=== PATIENT | female | born 1960 | race Caucasian/White ===

== ENCOUNTER 2018-11-10 17:58 | Emergency (ER) | payer OTHER ==
[~2018-11-10] VITALS: Ht 172.7 cm; Wt 60.0 kg
[2018-11-10 18:05] VITALS: Ht 172.7 cm; Wt 60.0 kg
[2018-11-10] MEDS ORDERED: predniSONE 20 MG TAB PO STA (20:23)
[2018-11-10] MEDS ORDERED: ALBUTEROL 0.5% (NEB) 2.5 MG/0.5 ML AMP INH STA (20:23)
[2018-11-10] MEDS ORDERED: IPRATROPIUM (NEB) 0.5 MG/2.5 ML AMP INH STA (20:23)
[2018-11-10] MEDS ORDERED: ALBU18HF INHALATION (21:38)
[2018-11-10] MEDS ORDERED: BENZ200C68 PO (21:38)
[2018-11-10] MEDS ORDERED: PRED20TA PO (21:38)
--- NOTE | 2018-11-10 21:41 | ERD ---
ER Documentation Chief Complaint Chief Complaint PT REPORTS ASTHMA EXACERBATION HPI 58-year-old female with past medical history of asthma presenting to the emergency department complaining of asthma exacerbation for the past 3 days. She reports shortness of breath and wheezing. Symptoms are worse with exertion. She has used her albuterol inhaler 8 times today without significant relief. She also reports cough for the past several weeks. She denies any fevers or chills or other symptoms at this time. ROS All systems reviewed and are negative except as per history of present illness. Medications Home Meds Active Scripts Benzonatate* (Benzonatate*) 200 Mg Capsule, 200 MG PO TID PRN for COUGH, #15 CAP Prov:CHITRA FOX PA-C 11/10/18 Albuterol Sulfate* (Ventolin HFA*) 18 Gm Hfa.aer.ad, 2 PUFF INHALATION Q4H, #1 INHALER Prov:CHITRA FOX PA-C 11/10/18 Prednisone* (Prednisone*) 20 Mg Tab, 40 MG PO DAILY for 4 Days, TAB Prov:CHITRA FOX PA-C 11/10/18 Allergies Allergies: Coded Allergies: propoxyphene (Verified Allergy, Unknown, 11/10/18) PMhx/Soc History of Surgery: No Anesthesia Reaction: No Hx Neurological Disorder: No Hx Respiratory Disorders: Yes (asthma) Hx Cardiac Disorders: Yes (HTN) Hx Miscellaneous Medical Probl: Yes (HEPATITIS C ) Hx Alcohol Use: No Hx Substance Use: No Hx Tobacco Use: No Smoking Status: Never smoker FmHx Family History: No diabetes Physical Exam Vitals Vital Signs Date Temp Pulse Resp B/P (MAP) Pulse Ox O2 O2 Flow FiO2 Time Delivery Rate 11/10/18 59 18 98 21 20:59 11/10/18 98.7 82 20 169/98 100 18:05 (121) Physical Exam Const: No acute distress Head: Atraumatic Eyes: Normal Conjunctiva ENT: Normal External Ears, Nose and Mouth. Neck: Full range of motion. No meningismus. Resp: No respiratory distress. Shallow inspiratory effort. Mild inspiratory wheezing noted to bilateral upper lung morin. Cardio: Regular rate and rhythm, no murmurs Skin: No petechiae or rashes Ext: No cyanosis, or edema Neur: Awake and alert Psych: Normal Mood and Affect Results 24 hrs Current Medications Medications Dose Sig/Richard Start Time Status Last (Trade) Ordered Route PRN Stop Time Admin Dose Reason Admin Albuterol 10 mg ONCE STAT 11/10/18 DC 11/10/18 (Proventil INH 20:23 20:58 0.5% (Neb)) 11/10/18 20:26 Ipratropium 1 mg ONCE STAT 11/10/18 DC 11/10/18 [place] [facility] 20:23 20:58 (Atrovent 11/10/18 20:26 0.02% (Neb)) Prednisone 60 mg ONCE STAT 11/10/18 DC 11/10/18 (Prednisone) PO 20:23 20:37 11/10/18 20:26 [place] [id number] Radiology Main Line: [phone] DIAGNOSTIC IMAGING REPORT Patient: CATHLEEN MAGAÑA : 1960 Age: 58 Sex: F MR #: [id number] DOS: 11/10/182022 Ordering MD: CHITRA FOX PA-C Location: [facility] Room/Bed: PROCEDURE: XR Chest. CLINICAL INDICATION: Shortness of breath. Asthma exacerbation TECHNIQUE: Portable AP upright view of the chest was obtained. COMPARISON: None. FINDINGS: The cardiomediastinal silhouette is within normal limits. The lungs are clear but mildly hyperinflated. There is no evidence for pleural effusion, pneumothorax or pulmonary vascular congestion. The osseous structures are intact with no evidence for acute abnormality. RPTAT:HJJR IMPRESSION: Mildly hyperinflated lungs correlate with the provided history but without evidence of pulmonary infiltrate. Physician Honey Date Time Electronically viewed and signed by Physician Honey on 11/10/2018 21:22 JR/ CC: CHITRA FOX PA-C [phone] Procedures/MDM 58-year-old female presents to the emergency department with signs and symptoms most consistent with acute asthma exacerbation. Patient was administered albuterol/ipratropium breathing treatment as well as prednisone. She was significantly improved on reevaluation. Chest x-ray showed no evidence of pulmonary infiltrate. Patient's respiratory status has stabilized while in the department and is appropriate for outpatient work up. Exam and work up not consistent w/ impending respiratory failure or cardiovascular collapse. Patient's blood pressure was elevated (>120/80) but appears stable without evid ence of hypertension emergency or urgency. The patient is to follow-up and pursue outpatient monitoring and therapy with their primary care physician within 1 week and return immediately if they have any new, worsening, or concerning symptoms. Departure Diagnosis: Primary Impression: Asthma with acute exacerbation Condition: Fair Patient Instructions: Asthma, Acute (Adult) Referrals: [facility] (PCP) Additional Instructions: Call your primary care doctor TOMORROW for an appointment during the next 1-2 days.See the doctor sooner or return here if your condition worsens before your appointment time. CHITRA FOX PA-C Nov 10, 2018 21:41
[2018-11-10 22:07] VITALS: BP 157/54; PULSE 72; RESP 20
== END 2018-11-10 22:08 | disposition home or self-care (01) ==
LOC: FTE 17:58
DX: J45.901 Unspecified asthma with (acute) exacerbation (principal); I10 Essential (primary) hypertension
CPT/HCPCS: 71045; 94644; J7512; Z7502; Z7610